=== PATIENT | male | born 1950 | race Caucasian/White ===

== ENCOUNTER 2016-08-07 13:50 | Inpatient (IN) | payer MEDICARE ==
[~2016-08-07] VITALS: Ht 182.9 cm; Wt 78.0 kg
[2016-08-07 13:53] VITALS: BP 136/78; PULSE 78; RESP 20; TEMP 97.7; O2SAT 91
[2016-08-07] MEDS ORDERED: SODIUM CHLORIDE 0.9% FLUSH 5 ML FLUSH IVF PRN (14:15)
[2016-08-07] MEDS ORDERED: ASPIRIN 81 MG CHEW TAB PO ONE (14:15)
[2016-08-07] MEDS ORDERED: INSULIN HUMAN REGULAR 1,000 UNITS/10 ML VIAL IVP ONE (14:15)
[2016-08-07] MEDS ORDERED: SODIUM CHLOR 0.9% 1000 ML INJ 1,000 ML IV ONE (14:15)
--- NOTE | 2016-08-07 14:15 | PD ---
HPI Chief Complaint: General Weakness Time Seen by Provider: 14:14 Travel History International Travel<30 days: No Contact w/Intl Traveler<30days: No Traveled to known affect area: No History of Present Illness HPI 66-year-old female who normally lives in [place] down here for about a month, presents to the emergency Department with a history of type 2 diabetes treated with insulin, long-term smoking history with untreated COPD, and complaints of generalized weakness and malaise and decreased appetite over the past 2 weeks. Patient was recently started on azithromycin yesterday by his primary care physician Alphonso Salmeron for presumed bronchitis/sinusitis. Patient denies fever, chills, chest pain but complains of chest congestion. Patient states he feels short of breath with exertion. Patient states he normally walks 2 miles a day but hasn't done that in some time. Patient denies nausea, vomiting, and abdominal pain. Patient has a history of pancreatitis in the past from alcohol use but has not had that many years. Patient only has an occasional beer at this time. Patient smokes at least a pack a day typically but hasn't been smoking as much as normal in the past 2 weeks. Patient's blood sugars have been running in the high 200s over the past week. Patient is allergic to penicillin. [facility] Social History Alcohol Use: Yes (occasional beer.) Tobacco Use: Yes Substance Use: No Allergies-Medications (Allergen,Severity, Reaction): Coded Allergies: Penicillin (Verified Allergy, Severe, 08/07/16) Reported Meds & Prescriptions Reported Meds & Active Scripts Active Reported Azithromycin 250 Mg Tab 250 Mg PO DIRECTED Take 2 tabs (500 mg) on day 1 then 1 tab daily x 4 days. Lantus Inj (Insulin Glargine) 1,000 Unit/10 Ml Vial 20 Units SQ HS Tamsulosin (Tamsulosin HCl) 0.4 Mg Cap 0.4 Mg PO HS Baclofen 10 Mg Tab 10 Mg PO BID PRN Celecoxib 200 Mg Cap 200 Mg PO BID Enalapril (Enalapril Maleate) 10 Mg Tab 10 Mg PO DAILY Metoprolol Tartrate 50 Mg Tab 50 Mg PO DAILY Pantoprazole (Pantoprazole Sodium) 40 Mg Tab 40 Mg PO DAILY Zolpidem (Zolpidem Tartrate) 5 Mg Tab 5 Mg PO HS PRN Xarelto (Rivaroxaban) 20 Mg Tab 20 Mg PO DAILY Metformin (Metformin HCl) 1,000 Mg Tab 1,000 Mg PO BIDPC With meals Hydrocodone-Acetaminophen 10-325 mg Tab 1 Tab PO Q6H PRN Review of Systems General / Constitutional: No: Fever, Chills Eyes: No: Visual changes HENT: Positive: Congestion, No: Headaches, Vertigo, Lightheadedness, Sore Throat, Rhinitis, Rhinorrhea, Neck Stiffness, Neck Pain, Ear Discharge, Earache Cardiovascular: No: Chest Pain or Discomfort Respiratory: Positive: Cough, Shortness of Breath, Wheezing, No: Sneezing, Orthopnea, Hemoptysis, Pleuritic Pain Gastrointestinal: Positive: Loss of Appetite, No: Nausea, Vomiting, Diarrhea, Abdominal Pain, Changes in Bowel Habits Genitourinary: No: Dysuria Musculoskeletal: No: Pain Skin: No Rash Neurologic: Positive: Weakness (generalized) Psychiatric: No: Depression Endocrine: No: Polydipsia Hematologic/Lymphatic: No: Easy Bruising Physical Exam Narrative GENERAL: Patient appears ill but not septic. SKIN: Warm and dry. Poor collar. Somewhat diminished turgor. HEAD: Atraumatic. Normocephalic. EYES: Pupils equal and round. No scleral icterus. No injection or drainage. ENT: No nasal bleeding or discharge. Mucous membranes pink and moderately dry. Pharynx is normal. No sinus tenderness to palpation. No significant lymphadenopathy. NECK: Trachea midline. No JVD. Supple nontender. CARDIOVASCULAR: Regular rate and rhythm. No murmurs appreciated RESPIRATORY: No accessory muscle use. Moderate diffuse wheezes throughout to auscultation. Breath sounds equal bilaterally. GASTROINTESTINAL: Abdomen soft, non-tender, nondistended. Hepatic and splenic margins not palpable. MUSCULOSKELETAL: Extremities without clubbing, cyanosis, or edema. No obvious deformities. NEUROLOGICAL: Awake and alert. No obvious cranial nerve deficits. Motor grossly within normal limits. Five out of 5 muscle strength in the arms and legs. Normal speech. PSYCHIATRIC: Appropriate mood and affect; insight and judgment normal. Data Data Last Documented VS Vital Signs Date Time Temp Pulse Resp B/P Pulse Ox O2 Delivery O2 Flow Rate FiO2 08/07/16 14:26 89 Room Air 08/07/16 14:26 2 08/07/16 13:53 97.7 78 20 136/78 Orders Electrocardiogram (08/07/16 14:15) Complete Blood Count With Diff (08/07/16 14:15) Comprehensive Metabolic Panel (08/07/16 14:15) Magnesium (Mg) (08/07/16 14:15) Beta Hydroxybutyrate (Acetone) (08/07/16 14:15) Urinalysis - C+S If Indicated (08/07/16 14:15) Chest, Single Ap (08/07/16 14:15) Ecg Monitoring (08/07/16 14:15) Iv Access Insert/Monitor (08/07/16 14:15) Oximetry (08/07/16 14:15) NPO (08/07/16 14:15) Sodium Chloride 0.9% Flush (Ns Flush) (08/07/16 14:15) Sodium Chlor 0.9% 1000 Ml Inj (Ns 1000 M (08/07/16 14:15) Troponin I (08/07/16 14:15) Lipase (08/07/16 14:15) B-Type Natriuretic Peptide (08/07/16 14:15) Prothrombin Time / Inr (Pt) (08/07/16 14:15) Act Partial Throm Time (Ptt) (08/07/16 14:15) Oxygen Administration (08/07/16 14:15) Aspirin Chew (Aspirin Chew) (08/07/16 14:15) Insulin Human Regular Inj (Novolin R Inj (08/07/16 14:15) Blood Glucose (08/07/16 14:15) Methylprednisolone So Succ Inj (Solumedr (08/07/16 15:45) Albuterol-Ipratropium Neb (Duoneb Neb) (08/07/16 15:45) Nicotine 21 Mg Patch.24 Hr (Habitrol 21 (08/07/16 16:00) Labs Laboratory Tests Test 08/07/16 08/07/16 12:34 14:52 White Blood Count 9.1 TH/MM3 Red Blood Count 4.91 MIL/MM3 Hemoglobin 15.8 GM/DL Hematocrit 44.9 % Mean Corpuscular Volume 91.3 FL Mean Corpuscular Hemoglobin 32.1 PG Mean Corpuscular Hemoglobin 35.2 % Concent Red Cell Distribution Width 13.0 % Platelet Count 275 TH/MM3 Mean Platelet Volume 7.8 FL Neutrophils (%) (Auto) 76.5 % Lymphocytes (%) (Auto) 15.8 % Monocytes (%) (Auto) 7.3 % Eosinophils (%) (Auto) 0.1 % Basophils (%) (Auto) 0.3 % Neutrophils # (Auto) 6.9 TH/MM3 Lymphocytes # (Auto) 1.4 TH/MM3 Monocytes # (Auto) 0.7 TH/MM3 Eosinophils # (Auto) 0.0 TH/MM3 Basophils # (Auto) 0.0 TH/MM3 CBC Comment DIFF FINAL Differential Comment Prothrombin Time 11.6 SEC Prothromb Time International 1.0 RATIO Ratio Activated Partial 33.4 SEC Thromboplast Time Sodium Level 123 MEQ/L Potassium Level 4.8 MEQ/L Chloride Level 89 MEQ/L Carbon Dioxide Level 25.7 MEQ/L Anion Gap 8 MEQ/L Blood Urea Nitrogen 11 MG/DL Creatinine 1.04 MG/DL Estimat Glomerular Filtration 72 ML/MIN Rate Random Glucose 378 MG/DL Calcium Level 8.6 MG/DL Magnesium Level 0.8 MG/DL Total Bilirubin 1.0 MG/DL Aspartate Amino Transf 11 U/L (AST/SGOT) Alanine Aminotransferase 15 U/L (ALT/SGPT) Alkaline Phosphatase 86 U/L Troponin I LESS THAN 0.02 NG/ML B-Type Natriuretic Peptide 66 PG/ML Total Protein 7.1 GM/DL Albumin 3.2 GM/DL Lipase 148 U/L B-Hydroxybutyrate 0.98 MMOL/L Urine Color YELLOW Urine Turbidity CLEAR Urine pH 6.5 Urine Specific [place] 1.029 Urine Protein NEG mg/dL Urine Glucose (UA) 1000 mg/dL Urine Ketones 40 mg/dL Urine Occult Blood NEG Urine Nitrite NEG Urine Bilirubin NEG Urine Urobilinogen 2.0 MG/DL Urine Leukocyte Esterase NEG Urine RBC 2 /hpf Urine WBC LESS THAN 1 /hpf Urine Squamous Epithelial 1 /hpf Cells Microscopic Urinalysis Comment CULT NOT INDICATED MDM Medical Decision Making Medical Screen Exam Complete: Yes Emergency Medical Condition: Yes Differential Diagnosis Hyperglycemia. Electrolyte imbalance. Weakness. COPD. Bronchitis. Pneumonia. Cardiac syndrome. CHF. Narrative Course Patient is felt to be medically stable at time of exam. Labs ordered including cardiac panel, CBC, CMP, proBNP, lipase and urinalysis. Chest x-ray is ordered as well as EKG. CBC is unremarkable except for right shift without leukocytosis. PT PTT and INR are unremarkable. CMP shows a sodium of 123, potassium 4.8, chloride 89. Troponin is less than 0.02. ProBNP is 66. Lipase is normal 148. Patient continues to be hypoxic. Patient discussed with Dr. Lopez who recommends Solu-Medrol 125 mg IV. Also duo nebs 3. Patient is given 1000 mL normal saline IV as well as 10 units IV insulin. Patient is started on a nicotine patch. Call was placed to the hospitalist for admission. Diagnosis Primary Impression: Hyperglycemia due to type 2 diabetes mellitus Qualified Code: E11.65 - Type 2 diabetes mellitus with hyperglycemia, with long-term current use of insulin Additional Impressions: Hypoxia COPD exacerbation Hyponatremia Admitting Information Admitting Physician Requests: Admit Condition: Stable Kranthi Cox Aug 07, 2016 14:14
[2016-08-07] MEDS ORDERED: ZOLP5TAB3 PO (14:25)
[2016-08-07] MEDS ORDERED: LANTUS2P SQ (14:25)
[2016-08-07] MEDS ORDERED: XARE20TA PO (14:25)
[2016-08-07] MEDS ORDERED: HYDR-3583 PO (14:25)
[2016-08-07] MEDS ORDERED: CELE1CAP8 PO (14:25)
[2016-08-07] MEDS ORDERED: METO50TA PO (14:25)
[2016-08-07] MEDS ORDERED: AZIT250T3 PO (14:25)
[2016-08-07] MEDS ORDERED: BACL10TA PO (14:25)
[2016-08-07] MEDS ORDERED: TAMS0.4C4 PO (14:25)
[2016-08-07] MEDS ORDERED: ENAL10TA PO (14:25)
[2016-08-07] MEDS ORDERED: METF1000 PO (14:25)
[2016-08-07] MEDS ORDERED: PANT40TA3 PO (14:25)
[2016-08-07 14:26] VITALS: O2SAT 89
[2016-08-07 15:04] LABS: AUTOMATED NEUTROPHIL # 6.9 TH/MM3 (1.8-7.7); BASOPHIL % 0.3 % (0.0-2.0); EOSINOPHIL % 0.1 % (0.0-4.0); HEMATOCRIT 44.9 % (39.0-51.0); HEMO FLAGS DIFF FINAL; LYMPH % 15.8 % (9.0-44.0); LYMPHOCYTE # 1.4 TH/MM3 (1.0-4.8); MEAN CELL VOLUME 91.3 FL (80.0-100.0); MEAN CORPUSCULAR HEMOGLOBIN 32.1 PG (27.0-34.0); MEAN CORPUSCULAR HGB CONC 35.2 % (32.0-36.0); MONO % 7.3 % (0.0-8.0); NEUT % 76.5 % (16.0-70.0); PLATELET COUNT 275 TH/MM3 (150-450); RED BLOOD COUNT 4.91 MIL/MM3 (4.50-5.90); WHITE BLOOD COUNT 9.1 TH/MM3 (4.0-11.0)
[2016-08-07 15:06] LABS: BLOOD, URINE NEG (NEG); GLUCOSE,URINE 1000 mg/dL (NEG); KETONE, URINE 40 mg/dL (NEG); NITRITE,URINE NEG (NEG); PH, URINE 6.5 (5.0-8.5); SQUAMOUS EPITHELIAL CELL URINE 1 /hpf (0-5); URINE COLOR YELLOW (YELLW/STRAW)
[2016-08-07 15:07] LABS: COMMENT (UR) CULT NOT INDICATED; CULTURE IF INDICATED CULT NOT INDICATED
--- NOTE | 2016-08-07 15:09 | RADRPT ---
EXAM DATE/TIME: 08/07/2016 14:32 [facility] COMPARISON: No previous studies available for comparison. INDICATIONS : Short of breath. MEDICAL HISTORY : Diabetes mellitus type II. SURGICAL HISTORY : None. ENCOUNTER: Initial ACUITY: 1 week PAIN SCORE: 4/10 LOCATION: Left chest FINDINGS: A single view of the chest demonstrates the lungs to be symmetrically aerated without evidence of mas s, infiltrate or effusion. The cardiomediastinal contours are unremarkable. Osseous structures are intact. CONCLUSION: No acute disease. Marissa Mathur MD on August 07, 2016 at 15:07 Board Certified Radiologist. This report was verified electronically.
[2016-08-07 15:27] LABS: ALKALINE PHOSPHATASE 86 U/L (45-117); ALT (GPT) 15 U/L (12-78); ANION GAP 8 MEQ/L (5-15); AST (GOT) 11 U/L (15-37); BETA-HYDROXYBUTYRATE 0.98 MMOL/L (0.00-0.39); BICARBONATE 25.7 MEQ/L (21.0-32.0); BLOOD UREA NITROGEN 11 MG/DL (7-18); CHLORIDE 89 MEQ/L (98-107); GLOMERULAR FILTRATION RATE 72 ML/MIN (>89); MAGNESIUM 0.8 MG/DL (1.5-2.5); POTASSIUM 4.8 MEQ/L (3.5-5.1)
[2016-08-07 15:38] LABS: SODIUM (NA) 123 MEQ/L (136-145)
[2016-08-07 15:39] LABS: APTT (PATIENT) 33.4 SEC (24.3-30.1); PROTHROMBIN TIME - PATIENT 11.6 SEC (9.8-11.6)
[2016-08-07 15:45] VITALS: O2SAT 94
[2016-08-07] MEDS ORDERED: methylPREDNISolone SOD SUCC 125 MG/2 ML VIAL IVP ONE (15:45)
[2016-08-07] MEDS ORDERED: NICOTINE 21 MG/24 HR PATCH TD ONE (16:00)
[2016-08-07 16:06] VITALS: BP 128/76; PULSE 68; RESP 14; O2SAT 95
[2016-08-07] MEDS: RESP: ALBUTEROL 2.5 MG/IPRATROPIUM 0.5 MG NEB (SCH) INH (16:16)
--- NOTE | 2016-08-07 16:58 | HHI.HP ---
HPI Service Family Medicine Primary Care Physician Unknown Admission Diagnosis Hyperglycemia/Hypoxia/Hyponatremia/COPD Diagnoses: Chief Complaint: Malaise International Travel<30 Days: No Contact w/Intl Traveler<30days: No Known Affected Area: No History of Present Illness 66 year old male with PMH of T2DM diagnosed 2 years ago has been on insulin since diagnosis presents to ED with his fisherlyn with complaints of generalized weakness and malaise over the past [address] Thompson in [place]. Patient states he was in [place] until the end of June. PCP started a medication for cholesterol in mid june, however took this for only 7 days as his blood glucoses started to elevate and was advised to discontinue per PCP. Patient does check his blood sugars every morning and night. Blood glucoses over the past two weeks have mostly been in the range of 200 - 300s. Prior to starting his cholesterol medication his sugars were better controlled in the 120s-130s. His fiance recently called his PCP and was prescribed azithromycin which was started yesterday. Fisherlyn bought an OTC urine test strip which was remarkable for elevated ketones and was advised by PCP to go to the ED. States he possibly had a fever sometime during the previous week however he denies no other fevers since then. Denies vomiting. Denies chest pain. Patient states he used to walk 2 miles per day. States he has been feeling short of breath for the past 2 weeks. Can only walk to the mailbox and back before feeling SOB. Reports a dry cough also over the past 2 weeks. Decreased PO and fluid intake due to decreased appetite x 2 weeks. (Zhen Brown MD R1) Review of Systems Constitutional: COMPLAINS OF: Fatigue, Fever, Change in appetite, DENIES: Diaphoretic episodes, Chills, Dizziness Eyes: DENIES: Blurred vision Respiratory: COMPLAINS OF: Cough, Shortness of breath, DENIES: Sputum production Cardiovascular: DENIES: Chest pain, Palpitations, Lower Extremity Edema Gastrointestinal: DENIES: Abdominal pain, Black stools, Bloody stools, Constipation, Diarrhea, Nausea, Vomiting Genitourinary: DENIES: Hematuria, Dysuria Neurologic: DENIES: Tremor (Zhen Brown MD R1) Past Family Social History Past Medical History T2DM HTN Arthritis Blood clot in portal vein, now on Xarelto BPH Past Surgical History Cholecystectomy L hip replacement Reported Medications Reported Meds & Active Scripts Active Reported Azithromycin 250 Mg Tab 250 Mg PO DIRECTED Take 2 tabs (500 mg) on day 1 then 1 tab daily x 4 days. Lantus Inj (Insulin Glargine) 1,000 Unit/10 Ml Vial 20 Units SQ HS Tamsulosin (Tamsulosin HCl) 0.4 Mg Cap 0.4 Mg PO HS Baclofen 10 Mg Tab 10 Mg PO BID PRN Celecoxib 200 Mg Cap 200 Mg PO BID Enalapril (Enalapril Maleate) 10 Mg Tab 10 Mg PO DAILY Metoprolol Tartrate 50 Mg Tab 50 Mg PO DAILY Pantoprazole (Pantoprazole Sodium) 40 Mg Tab 40 Mg PO DAILY Zolpidem (Zolpidem Tartrate) 5 Mg Tab 5 Mg PO HS PRN Xarelto (Rivaroxaban) 20 Mg Tab 20 Mg PO DAILY Metformin (Metformin HCl) 1,000 Mg Tab 1,000 Mg PO BIDPC With meals Hydrocodone-Acetaminophen 10-325 mg Tab 1 Tab PO Q6H PRN (Zhen Brown MD R1) Allergies: Coded Allergies: Penicillin (Verified Allergy, Mild, 08/07/16) Skin peeling Family History Mother: needed an AICD, unclear history, liver cancer Father: COPD requiring oxygen, [place] at age 60 Social History Tobacco: 1 PPD x 50 plus years Etoh: consumes a beer occasionally, 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; two years ago he started decreasing etoh intake, last drink was about 2 weeks ago Illicit drug use: nothing in the last 5 years Visiting from [place] and now staying in [place] [facility] in [place] ( Zhen Brown MD R1) Physical Exam Vital Signs Vital Signs Date Time Temp Pulse Resp B/P Pulse Ox O2 Delivery O2 Flow Rate FiO2 08/07/16 16:06 68 14 128/76 95 Nasal Cannula 2 08/07/16 15:45 94 Nasal Cannula 2.00 08/07/16 14:26 89 Room Air 08/07/16 14:26 92 Nasal Cannula 2 08/07/16 13:53 97.7 78 20 136/78 91 Room Air Physical Exam GENERAL: Lying in bed, appears relatively comfortable, breathing nonlabored, NAD SKIN: No rashes, ecchymoses or lesions. Cool and dry. HEAD: Atraumatic. Normocephalic. EYES: PERRL. EOMI. No scleral icterus. No injection or drainage. ENT: No nasal drainage. MMM. Uvula midline. Airway patent. NECK: Supple. No JVD or lymphadenopathy. CARDIOVASCULAR: Regular rate and rhythm without murmurs, gallops, or rubs. Peripheral pulses 2+. Cap refill about 2 seconds. RESPIRATORY: Coarse breath sounds moreso bibasilar. Faint expiratory wheezing. No rhonchi. Breathing at comfortable rate. GASTROINTESTINAL: Abdomen soft, non-tender, nondistended. No hepato-splenomegaly , or palpable masses. No guarding. MUSCULOSKELETAL: Extremities without clubbing, cyanosis, or edema. No joint tenderness, effusion, or edema noted. No calf tenderness. NEUROLOGICAL: Awake and alert. Normal speech. Cranial nerves II through XII intact. Motor and sensory grossly within normal limits. Laboratory Laboratory Tests Test 08/07/16 08/07/16 12:34 14:52 White Blood Count 9.1 Red Blood Count 4.91 Hemoglobin 15.8 Hematocrit 44.9 Mean Corpuscular Volume 91.3 Mean Corpuscular Hemoglobin 32.1 Mean Corpuscular Hemoglobin 35.2 Concent Red Cell Distribution Width 13.0 Platelet Count 275 Mean Platelet Volume 7.8 Neutrophils (%) (Auto) 76.5 Lymphocytes (%) (Auto) 15.8 Monocytes (%) (Auto) 7.3 Eosinophils (%) (Auto) 0.1 Basophils (%) (Auto) 0.3 Neutrophils # (Auto) 6.9 Lymphocytes # (Auto) 1.4 Monocytes # (Auto) 0.7 Eosinophils # (Auto) 0.0 Basophils # (Auto) 0.0 CBC Comment DIFF FINAL Differential Comment Prothrombin Time 11.6 Prothromb Time International 1.0 Ratio Activated Partial 33.4 Thromboplast Time Sodium Level 123 Potassium Level 4.8 Chloride Level 89 Carbon Dioxide Level 25.7 Anion Gap 8 Blood Urea Nitrogen 11 Creatinine 1.04 Estimat Glomerular Filtration 72 Rate Random Glucose 378 Calcium Level 8.6 Magnesium Level 0.8 Total Bilirubin 1.0 Aspartate Amino Transf 11 (AST/SGOT) Alanine Aminotransferase 15 (ALT/SGPT) Alkaline Phosphatase 86 Troponin I LESS THAN 0.02 B-Type Natriuretic Peptide 66 Total Protein 7.1 Albumin 3.2 Lipase 148 B-Hydroxybutyrate 0.98 Urine Color YELLOW Urine Turbidity CLEAR Urine pH 6.5 Urine Specific [place] 1.029 Urine Protein NEG Urine Glucose (UA) 1000 Urine Ketones 40 Urine Occult Blood NEG Urine Nitrite NEG Urine Bilirubin NEG Urine Urobilinogen 2.0 Urine Leukocyte Esterase NEG Urine RBC 2 Urine WBC LESS THAN 1 Urine Squamous Epithelial 1 Cells Microscopic Urinalysis Comment CULT NOT INDICATED (Zhen Brown MD R1) Result Diagram: 08/07/16 1234 08/07/16 1234 Imaging Last 48 hours Impressions Chest X-Ray 08/07/16 1415 Signed Impressions: Service Date/Time: , August 07, 2016 14:32 - CONCLUSION: No acute disease. Marissa Mathur MD (Zhen Brown MD R1) Assessment and Plan Assessment and Plan 66 year old male with PMH of T2DM insulin dependent presents with: Code Status Full code Discussed Condition With sdw Dr. Quinn wdw Dr. Waldron (Zhen Brown MD R1) Problem List: (1) COPD (chronic obstructive pulmonary disease) Status: Acute Plan: No prior diagnosis of COPD per patient and his fiance. Patient does have a significant cigarette smoking history. Will obtain PFTs in the morning Lungs may be mildly hyperinflated on CXR - Received Solumedrol 125 mg IV in ED - Will continue with Solumedrol 40 mg IV for the AM - Continue azithromycin as patient had completed 2 days prior to admission - Added Rocephin - O2 via NC, wean as tolerated, goal O2 sats 88-92% - Duonebs and albuterol prn for now - PT (2) T2DM (type 2 diabetes mellitus) Status: Chronic Plan: Patient is compliant with medications but DM seems to be inadequately controlled Glucose 378 on CMP, 1000 glucose in UA, acetone elevated Obtain HbA1c Levemir 10 units qhs Low-dose ISS Continue home metformin Accuchecks ACHS (3) Hyponatremia Status: Acute Plan: Na 123 on admission Pseudohyponatremia may be contributing 1.5 L fluid restriction Repeat BMP now and for the AM (4) Hypertension Status: Chronic Plan: BPs within normal limits Continue home medications (5) Portal vein thrombosis Status: Chronic Plan: Continue home Xarelto (6) Nutrition, metabolism, and development symptoms Status: Acute Plan: Diabetic diet DVT PPX: Home Xarelto dose, SCDs GI PPX: Protonix 40 mg po daily (Zhen Brown MD R1) Physician Certification 2 Midnight Certification Type: Admission for Inpatient Services Order for Inpatient Services The services are ordered in accordance with Medicare regulations or non- Medicare payer requirements, as applicable. In the case of services not specified as inpatient-only, they are appropriately provided as inpatient services in accordance with the 2-midnight benchmark. Estimated LOS (days): 2 days is the estimated time the patient will need to remain in the hospital, assuming treatment plan goals are met and no additional complications. Post-Hospital Plan: Home (Zhen Brown MD R1) 2 Midnight Certification Type: Admission for Inpatient Services Post-Hospital Plan: Home (Gregory Waldron MD) Zhen Brown MD R1 Aug 07, 2016 16:58 Gregory Waldron MD Aug 07, 2016 21:19
[2016-08-07] MEDS ORDERED: BACLOFEN 10 MG TAB PO PRN (17:30)
[2016-08-07] MEDS ORDERED: GLUCAGON 1 MG/ML VIAL OTHER PRN (17:30)
[2016-08-07] MEDS ORDERED: DEXTROSE 50% IN WATER 50 ML VIAL(D50) IV PUSH PRN (17:30)
--- NOTE | 2016-08-07 17:42 | PD ---
Data Data Last Documented VS Vital Signs Date Time Temp Pulse Resp B/P Pulse Ox O2 Delivery O2 Flow Rate FiO2 08/07/16 16:06 68 14 128/76 95 Nasal Cannula 2 08/07/16 13:53 97.7 Orders Electrocardiogram (08/07/16 14:15) Complete Blood Count With Diff (08/07/16 14:15) Comprehensive Metabolic Panel (08/07/16 14:15) Magnesium (Mg) (08/07/16 14:15) Beta Hydroxybutyrate (Acetone) (08/07/16 14:15) Urinalysis - C+S If Indicated (08/07/16 14:15) Chest, Single Ap (08/07/16 14:15) Ecg Monitoring (08/07/16 14:15) Iv Access Insert/Monitor (08/07/16 14:15) Oximetry (08/07/16 14:15) NPO (08/07/16 14:15) Sodium Chloride 0.9% Flush (Ns Flush) (08/07/16 14:15) Sodium Chlor 0.9% 1000 Ml Inj (Ns 1000 M (08/07/16 14:15) Troponin I (08/07/16 14:15) Lipase (08/07/16 14:15) B-Type Natriuretic Peptide (08/07/16 14:15) Prothrombin Time / Inr (Pt) (08/07/16 14:15) Act Partial Throm Time (Ptt) (08/07/16 14:15) Oxygen Administration (08/07/16 14:15) Aspirin Chew (Aspirin Chew) (08/07/16 14:15) Insulin Human Regular Inj (Novolin R Inj (08/07/16 14:15) Blood Glucose (08/07/16 14:15) Methylprednisolone So Succ Inj (Solumedr (08/07/16 15:45) Albuterol-Ipratropium Neb (Duoneb Neb) (08/07/16 15:45) Nicotine 21 Mg Patch.24 Hr (Habitrol 21 (08/07/16 16:00) Admit Order (Ed Use Only) (08/07/16 16:41) Labs Laboratory Tests Test 08/07/16 08/07/16 12:34 14:52 White Blood Count 9.1 TH/MM3 Red Blood Count 4.91 MIL/MM3 Hemoglobin 15.8 GM/DL Hematocrit 44.9 % Mean Corpuscular Volume 91.3 FL Mean Corpuscular Hemoglobin 32.1 PG Mean Corpuscular Hemoglobin 35.2 % Concent Red Cell Distribution Width 13.0 % Platelet Count 275 TH/MM3 Mean Platelet Volume 7.8 FL Neutrophils (%) (Auto) 76.5 % Lymphocytes (%) (Auto) 15.8 % Monocytes (%) (Auto) 7.3 % Eosinophils (%) (Auto) 0.1 % Basophils (%) (Auto) 0.3 % Neutrophils # (Auto) 6.9 TH/MM3 Lymphocytes # (Auto) 1.4 TH/MM3 Monocytes # (Auto) 0.7 TH/MM3 Eosinophils # (Auto) 0.0 TH/MM3 Basophils # (Auto) 0.0 TH/MM3 CBC Comment DIFF FINAL Differential Comment Prothrombin Time 11.6 SEC Prothromb Time International 1.0 RATIO Ratio Activated Partial 33.4 SEC Thromboplast Time Sodium Level 123 MEQ/L Potassium Level 4.8 MEQ/L Chloride Level 89 MEQ/L Carbon Dioxide Level 25.7 MEQ/L Anion Gap 8 MEQ/L Blood Urea Nitrogen 11 MG/DL Creatinine 1.04 MG/DL Estimat Glomerular Filtration 72 ML/MIN Rate Random Glucose 378 MG/DL Calcium Level 8.6 MG/DL Magnesium Level 0.8 MG/DL Total Bilirubin 1.0 MG/DL Aspartate Amino Transf 11 U/L (AST/SGOT) Alanine Aminotransferase 15 U/L (ALT/SGPT) Alkaline Phosphatase 86 U/L Troponin I LESS THAN 0.02 NG/ML B-Type Natriuretic Peptide 66 PG/ML Total Protein 7.1 GM/DL Albumin 3.2 GM/DL Lipase 148 U/L B-Hydroxybutyrate 0.98 MMOL/L Urine Color YELLOW Urine Turbidity CLEAR Urine pH 6.5 Urine Specific [place] 1.029 Urine Protein NEG mg/dL Urine Glucose (UA) 1000 mg/dL Urine Ketones 40 mg/dL Urine Occult Blood NEG Urine Nitrite NEG Urine Bilirubin NEG Urine Urobilinogen 2.0 MG/DL Urine Leukocyte Esterase NEG Urine RBC 2 /hpf Urine WBC LESS THAN 1 /hpf Urine Squamous Epithelial 1 /hpf Cells Microscopic Urinalysis Comment CULT NOT INDICATED MDM Supervised Visit with TERESA: Yes Narrative Course The history, exam, and medical decision-making in the associated midlevel provider note were completed with my assistance. I reviewed and agree with the findings presented. I attest that I had a [id number] encounter with the patient on the same day, and personally performed and documented my assessment and findings in the medical record. *My assessment and Findings: This is a 66-year-old male was long history of smoking and diabetes who presents to the emergency department with increasing shortness of breath it's been progressive over the past several weeks. On exam he has diffuse wheezing, and his oxygen saturation on room air is 88%. He was placed on a monitor and an IV was established. Labs demonstrate a hyperglycemia with a corrected sodium of 127. Patient's presentation is consistent with a COPD exacerbation. He was given serial Brocco dilator treatments and steroids. I think he requires admission both for a low oxygen saturation as well as glucose management as he is going to require steroids. Diagnosis Primary Impression: Hyperglycemia due to type 2 diabetes mellitus Qualified Code: E11.65 - Type 2 diabetes mellitus with hyperglycemia, with long-term current use of insulin Additional Impressions: Hyponatremia COPD exacerbation Hypoxia Condition: Stable Carolina Lopez MD Aug 07, 2016 17:42
[2016-08-07] MEDS: metFORMIN HCL 500 MG TAB PO SCH (18:00)
[2016-08-07] MEDS ORDERED: SODIUM CHLOR 0.9% 1000 ML INJ 1,000 ML IV SCH (18:00)
[2016-08-07] MEDS ORDERED: RESP: ALBUTEROL 2.5 MG/3 ML NEB (PRN) INH (18:15)
[2016-08-07] MEDS: ACETAMINOPHEN/HYDROcodone 325 MG/10 MG TAB PO PRN (19:00)
[2016-08-07 20:00] VITALS: BP 126/84; PULSE 115; RESP 18; TEMP 98.1; O2SAT 94
[2016-08-07] MEDS ORDERED: RESP: ALBUTEROL 2.5 MG/IPRATROPIUM 0.5 MG NEB (PRN) NEB (20:00)
[2016-08-07] MEDS: cefTRIAXone INJ 1,000 MG in SODIUM CHLORIDE 0.9% INJ 100 ML IV SCH (20:17)
[2016-08-07] MEDS: TAMSULOSIN HCL 0.4 MG CAP PO SCH (20:18)
[2016-08-07] MEDS: CELECOXIB 200 MG CAP PO SCH (20:18)
[2016-08-07] MEDS ORDERED: INSULIN ASPART SUPPLEMENTAL SCALE SQ SCH (21:00)
--- NOTE | 2016-08-07 21:31 | HHI.FPPN ---
Subjective Remarks Attending note: 66-year-old gentleman from [place] admitted with a one to two-week history of increasing generalized weakness, shortness of breath, coughing. Patient has a significant tobacco history in the past, states his baseline health is that he walks 2 miles a day and really feels very well although it is been 2 weeks since he was able to walk 2 miles. Has had a cough, not necessarily productive, does not recall any fever or chills. Denies any nausea vomiting or diarrhea. Has a fair history of a portal vein thrombosis in his arms or relative, is aware that his blood sugars have been going up to the 3 to 400s which is unusual for him, has had some polyuria and polydipsia. Refer to resident's history and physical for complete discussion of the past medical history, family history, social history and review of systems. Objective Vitals Vital Signs Date Time Temp Pulse Resp B/P Pulse Ox O2 Delivery O2 Flow Rate FiO2 08/07/16 16:06 68 14 128/76 95 Nasal Cannula 2 08/07/16 15:45 94 Nasal Cannula 2.00 08/07/16 14:26 89 Room Air 08/07/16 14:26 92 Nasal Cannula 2 08/07/16 13:53 97.7 78 20 136/78 91 Room Air Result Diagram: 08/07/16 1234 08/07/16 1234 Objective Remarks Vital signs noted. O2 saturation 95 on 2 L of nasal cannula patient resting relatively comfortably, coughing intermittently. HEENT: Grossly nonlocalizing. Lungs: Distant breath sounds with left and right upper and lower wheezing moderate Cardiac: S1-S2, no S3 or murmurs. Abdomen: Slightly protuberant, no tenderness, numbness or organomegaly evident. Extremities: Feet are warm and dry, calves are supple. Refer to resident's physical exam. We discussed in details. A/P Assessment and Plan Clinical assessment 66-year-old gentleman admitted with increasing malaise, weakness, cough and "just not feeling well ". Evidently patient has COPD, is being treated for an exacerbation. Has uncontrolled diabetes at the current time, this is being addressed with insulin, chronic anticoagulation on hyponatremia as result of hyperglycemia . Patient seen and examined. Case to be reviewed and discussed with resident team. Agree with plan of care as to be discussed with resident team and to be documented in the resident note. Gregory Waldron MD Aug 07, 2016 21:31
[2016-08-07 22:38] LABS: POTASSIUM 4.3 MEQ/L (3.5-5.1)
[2016-08-07] MEDS: INSULIN DETEMIR 100 UNITS/ML VIAL SQ SCH (23:00)
[2016-08-08] VITALS (10 sets, daily range): BP systolic 130–166; BP diastolic 70–89; PULSE 49–82; RESP 18–20; TEMP 97.5–98.3; O2SAT 91–96
[2016-08-08] MEDS ORDERED: SODIUM CHLORID 0.9% 500 ML INJ 500 ML IV ONE
[2016-08-08] MEDS: NS + KCL 20 MEQ INJ 1,000 ML IV SCH ×3 (00:29→15:34)
[2016-08-08 01:39] LABS: BLOOD GAS BASE EXCESS -0.7 mmol/L (-2-2); BLOOD GAS CARBOXYHEMOGLOBIN 2.1 % (0-4); BLOOD GAS HCO3 23 mmol/L (22-26); BLOOD GAS METHEMOGLOBIN 0.7 % (0-2); BLOOD GAS O2 HGB SATURATION 90 % (90-100); BLOOD GAS OXYGEN CONTENT 17.8 Vol % (12.0-20.0); BLOOD GAS PCO2 35 mmHg (38-42); BLOOD GAS PO2 68 mmHg (61-120); CRITICAL VALUE NO; DRAW SITE RT RADIAL; OXYGEN DEVICE RA; TEMP CORR TO 98.6
[2016-08-08 01:40] LABS: NUMBER OF ARTERIAL PUNCTURES 1; STAT YES; ULNAR PULSE PRESENT
[2016-08-08] MEDS: ACETAMINOPHEN/HYDROcodone 325 MG/10 MG TAB PO PRN ×4 (01:55→21:19)
[2016-08-08 02:20] LABS: POTASSIUM 4.5 MEQ/L (3.5-5.1)
[2016-08-08] MEDS: INSULIN ASPART SUPPLEMENTAL SCALE SQ SCH ×4 (07:00→21:11)
[2016-08-08 07:15] LABS: AUTOMATED NEUTROPHIL # 5.4 TH/MM3 (1.8-7.7); BASOPHIL % 0.2 % (0.0-2.0); HEMATOCRIT 39.5 % (39.0-51.0); HEMO FLAGS DIFF FINAL; LYMPHOCYTE # 0.7 TH/MM3 (1.0-4.8); MEAN CORPUSCULAR HEMOGLOBIN 32.3 PG (27.0-34.0); MEAN CORPUSCULAR HGB CONC 35.5 % (32.0-36.0); MONO % 4.5 % (0.0-8.0); NEUT % 84.3 % (16.0-70.0); PLATELET COUNT 208 TH/MM3 (150-450); RED BLOOD COUNT 4.34 MIL/MM3 (4.50-5.90); RED CELL DISTRIBUTION WIDTH 12.8 % (11.6-17.2); WHITE BLOOD COUNT 6.4 TH/MM3 (4.0-11.0)
[2016-08-08 07:29] LABS: ANION GAP 9 MEQ/L (5-15); BETA-HYDROXYBUTYRATE 1.01 MMOL/L (0.00-0.39); BICARBONATE 23.8 MEQ/L (21.0-32.0); BLOOD UREA NITROGEN 13 MG/DL (7-18); CHLORIDE 96 MEQ/L (98-107); GLOMERULAR FILTRATION RATE 103 ML/MIN (>89); POTASSIUM 4.7 MEQ/L (3.5-5.1); SODIUM (NA) 129 MEQ/L (136-145)
[2016-08-08] MEDS ORDERED: INSULIN DETEMIR 100 UNITS/ML VIAL SQ SCH (08:00)
[2016-08-08] MEDS: AZITHROMYCIN 250 MG TAB PO SCH (08:15)
[2016-08-08] MEDS: PANTOPRAZOLE SOD 40 MG DELAYED RELEASE TAB PO SCH (08:16)
[2016-08-08] MEDS: ENALAPRIL MALEATE 10 MG TAB PO SCH (08:16)
[2016-08-08] MEDS: METOPROLOL TARTRATE 50 MG TAB PO SCH (08:16)
[2016-08-08] MEDS: CELECOXIB 200 MG CAP PO SCH ×2 (08:16→21:09)
[2016-08-08] MEDS: RIVAROXABAN 20 MG TAB PO SCH (08:16)
[2016-08-08] MEDS: metFORMIN HCL 500 MG TAB PO SCH (08:16)
[2016-08-08] MEDS: NICOTINE 21 MG/24 HR PATCH TD SCH (08:19)
[2016-08-08] MEDS: REMOVE OLD NICODERM (NICOTINE) PATCH TD SCH (08:20)
[2016-08-08] MEDS ORDERED: methylPREDNISolone SOD SUCC 40 MG/1 ML VIAL IV SCH (09:00)
[2016-08-08 11:02] LABS: HEMOGLOBIN A1a 1.2 %; HEMOGLOBIN Ao 77.4 %; HEMOGLOBIN F 1.4 %; HEMOGLOBIN LA1C 4.1 %; HEMOGLOBIN P3 5.7 %
--- NOTE | 2016-08-08 15:26 | HHI.FPPN ---
Subjective Remarks Afebrile, blood pressure mildly hypertensive overnight. O2 via NC weaned down to 1L. Patient appears more comfortable this morning compared to admission. States overall he feels about 80% better. Denies any fevers or chills. States his cough has improved. He was working with PT this morning, did require oxygen while walking. Denies chest pain, shortness of breath. No GI complaints. Objective Vitals Vital Signs Date Time Temp Pulse Resp B/P Pulse Ox O2 Delivery O2 Flow Rate FiO2 08/08/16 12:00 98.0 58 18 133/70 91 08/08/16 08:00 97.9 54 18 162/88 95 08/08/16 08:00 64 08/08/16 07:47 94 Nasal Cannula 1.00 08/08/16 07:11 49 08/08/16 04:00 98.3 67 18 166/89 96 08/08/16 00:00 98.3 82 18 145/83 93 08/07/16 20:00 98.1 115 18 126/84 94 08/07/16 16:06 68 14 128/76 95 Nasal Cannula 2 08/07/16 15:45 94 Nasal Cannula 2.00 I/O 08/07/16 08/07/16 08/07/16 08/08/16 08/08/16 08/08/16 07:00 15:00 23:00 07:00 15:00 23:00 Intake Total 240 ml Output Total 350 ml Balance -110 ml Intake Oral 240 ml Output Urine Total 350 ml # Bowel Movements 0 Result Diagram: 08/08/1630 08/08/16 0630 Objective Remarks GENERAL: Lying in bed, appears comfortable, breathing nonlabored, NAD SKIN: No rashes, ecchymoses or lesions. Cool and dry. HEAD: Atraumatic. Normocephalic. EYES: EOMI. No scleral icterus. No injection or drainage. ENT: No nasal drainage. Airway patent. NECK: Supple. No JVD. CARDIOVASCULAR: Regular rate and rhythm without murmurs, gallops, or rubs. Peripheral pulses 2+. RESPIRATORY: Breath sounds more clear than prior examination. Mid-to-late expiratory wheezing. No rales or rhonchi. Breathing at comfortable rate. GASTROINTESTINAL: Abdomen soft, non-tender, nondistended. MUSCULOSKELETAL: Extremities without edema. No calf tenderness. NEUROLOGICAL: Awake and alert. Normal speech. Cranial nerves grossly intact. Motor and sensory grossly within normal limits. A/P Assessment and Plan 66 year old male with PMH of T2DM insulin dependent presents with: Discharge Planning Anticipate discharge home in 1-2 days following stabilization of electrolytes, blood glucose, and respiratory status. Problem List: (1) COPD (chronic obstructive pulmonary disease) Status: Acute Plan: No prior diagnosis of COPD per patient or his fiance. Patient does have a significant cigarette smoking history. Patient will need to obtain PFTs as an outpatient once he returns to his baseline respiratory status prior to admission Lungs may be mildly hyperinflated on CXR - Prednisone 20 mg po BID - Continue Azithromycin and Rocephin (azithromycin started 08/06 prior to admission; Rocephin started 08/07) - O2 via NC, wean as tolerated, goal O2 sats 88-92% - Duonebs and albuterol prn - Continue PT (2) T2DM (type 2 diabetes mellitus) Status: Chronic Plan: Patient is compliant with medications but DM seems to be inadequately controlled HbA1c 8.9 Levemir 10 units qhs, 5 units qAM Medium-dose ISS Continue home metformin Accuchecks ACHS (3) Hyponatremia Status: Acute Plan: Na 123 on admission Pseudohyponatremia may be contributing Could be a component of SIADH Will plan to discontinue fluids soon once patient continues to tolerate diet (4) Hypertension Status: Chronic Plan: Continue to check BPs q4h Continue home medications - Enalapril 10 mg po daily - Metoprolol 50 mg po daily (5) Portal vein thrombosis Status: Chronic Plan: Continue home Xarelto (6) Nutrition, metabolism, and development symptoms Status: Acute Plan: Diabetic diet DVT PPX: Home Xarelto dose, SCDs GI PPX: Protonix 40 mg po daily Zhen Brown MD R1 Aug 08, 2016 15:26
[2016-08-08] MEDS ORDERED: MAGNESIUM SULFATE 1 GM PREMIX 100 ML IV ONE (16:15)
[2016-08-08 17:39] LABS: BICARBONATE 23.7 MEQ/L (21.0-32.0); POTASSIUM 4.4 MEQ/L (3.5-5.1)
--- NOTE | 2016-08-08 17:57 | EKG ---
Date Performed: 08/07/2016 Time Performed: 14:37:27 PTAGE: 66 years EKG: ECTOPIC ATRIAL RHYTHM ABNORMAL RHYTHM ECG NO PREVIOUS TRACING DOCTOR: Romelia Claire Interpretating Date/Time 08/08/2016 17:56:49
[2016-08-08] MEDS: TAMSULOSIN HCL 0.4 MG CAP PO SCH (21:08)
[2016-08-08] MEDS: predniSONE 20 MG TAB PO SCH (21:08)
[2016-08-08] MEDS: INSULIN DETEMIR 100 UNITS/ML VIAL SQ SCH (21:09)
[2016-08-08] MEDS: cefTRIAXone INJ 1,000 MG in SODIUM CHLORIDE 0.9% INJ 100 ML IV SCH (21:09)
[2016-08-08 22:00] LABS: BICARBONATE 24.5 MEQ/L (21.0-32.0); POTASSIUM 5.1 MEQ/L (3.5-5.1)
[2016-08-09 01:12] VITALS: BP 164/83; PULSE 59; RESP 18; TEMP 97.7; O2SAT 94
[2016-08-09 04:00] VITALS: BP 173/93; PULSE 59; RESP 20; TEMP 97.7; O2SAT 93
[2016-08-09] MEDS: ACETAMINOPHEN/HYDROcodone 325 MG/10 MG TAB PO PRN (06:34)
[2016-08-09] MEDS: INSULIN ASPART SUPPLEMENTAL SCALE SQ SCH (06:36)
[2016-08-09 07:52] LABS: AUTOMATED NEUTROPHIL # 6.9 TH/MM3 (1.8-7.7); BASOPHIL % 0.1 % (0.0-2.0); HEMO FLAGS DIFF FINAL; LYMPH % 12.3 % (9.0-44.0); MEAN CELL VOLUME 90.8 FL (80.0-100.0); MEAN CORPUSCULAR HGB CONC 35.3 % (32.0-36.0); MONO % 5.1 % (0.0-8.0); NEUT % 82.5 % (16.0-70.0); PLATELET COUNT 246 TH/MM3 (150-450); RED BLOOD COUNT 4.19 MIL/MM3 (4.50-5.90); RED CELL DISTRIBUTION WIDTH 12.9 % (11.6-17.2); WHITE BLOOD COUNT 8.3 TH/MM3 (4.0-11.0)
[2016-08-09 08:00] VITALS: BP 173/90; PULSE 62; RESP 20; TEMP 97.5; O2SAT 94
[2016-08-09] MEDS ORDERED: INSULIN DETEMIR 100 UNITS/ML VIAL SQ SCH (08:00)
[2016-08-09 08:05] VITALS: PULSE 57
[2016-08-09 08:16] LABS: ALKALINE PHOSPHATASE 65 U/L (45-117); ALT (GPT) 10 U/L (12-78); ANION GAP 9 MEQ/L (5-15); AST (GOT) 4 U/L (15-37); BICARBONATE 25.5 MEQ/L (21.0-32.0); BLOOD UREA NITROGEN 11 MG/DL (7-18); CHLORIDE 95 MEQ/L (98-107); GLOMERULAR FILTRATION RATE 122 ML/MIN (>89); MAGNESIUM 1.1 MG/DL (1.5-2.5); POTASSIUM 4.3 MEQ/L (3.5-5.1); SODIUM (NA) 129 MEQ/L (136-145); TOTAL BILIRUBIN ADULT 0.4 MG/DL (0.2-1.0)
[2016-08-09] MEDS ORDERED: PRED10 PO (08:32)
[2016-08-09] MEDS ORDERED: LEVA750T PO (08:32)
[2016-08-09] MEDS ORDERED: NICO21DI2 TD (08:32)
[2016-08-09] MEDS ORDERED: VENTAER INH (08:32)
[2016-08-09] MEDS ORDERED: NICO4GUM29 CHEW (08:32)
--- NOTE | 2016-08-09 08:33 | HHI.DCPOC ---
Discharge Care Plan Diagnosis: (1) COPD exacerbation (2) Hyperglycemia due to type 2 diabetes mellitus Goals to Promote Your Health * To prevent worsening of your condition and complications * To maintain your health at the optimal level Directions to Meet Your Goals Take your medications as prescribed Follow your dietary instruction Follow activity as directed Keep your appointments as scheduled Take your immunizations and boosters as scheduled If your symptoms worsen call your PCP, if no PCP go to Urgent Care Center or Emergency Room Smoking is Dangerous to Your Health. Avoid second hand smoke Call the 24-hour hour crisis hotline for domestic abuse at Johanna Horton MD R2 Aug 09, 2016 08:33
[2016-08-09] MEDS: RIVAROXABAN 20 MG TAB PO SCH (08:40)
[2016-08-09] MEDS: METOPROLOL TARTRATE 50 MG TAB PO SCH (08:40)
[2016-08-09] MEDS: ENALAPRIL MALEATE 10 MG TAB PO SCH (08:40)
[2016-08-09] MEDS: AZITHROMYCIN 250 MG TAB PO SCH (08:40)
[2016-08-09] MEDS: CELECOXIB 200 MG CAP PO SCH (08:40)
[2016-08-09] MEDS: PANTOPRAZOLE SOD 40 MG DELAYED RELEASE TAB PO SCH (08:40)
[2016-08-09] MEDS: predniSONE 20 MG TAB PO SCH (08:40)
[2016-08-09] MEDS: NICOTINE 21 MG/24 HR PATCH TD SCH (08:42)
[2016-08-09] MEDS: REMOVE OLD NICODERM (NICOTINE) PATCH TD SCH (08:42)
[2016-08-09] MEDS: cefTRIAXone INJ 1,000 MG in SODIUM CHLORIDE 0.9% INJ 100 ML IV SCH (09:01)
[2016-08-09 09:07] VITALS: O2SAT 93
[2016-08-09] MEDS ORDERED: ENAL5TAB98 PO (09:51)
[2016-08-09] MEDS ORDERED: ENALAPRIL MALEATE 5 MG TAB PO ONE (10:00)
--- NOTE | 2016-08-09 10:01 | HHI.FPPN ---
Subjective Remarks No acute events overnight. Vital signs unremarkable overnight. This morning BP has increased to 170 systolic. Patient is otherwise asymptomatic and feels very well. States that he feels ready to go. Has been up walking around without respiratory issues. Denies chest pain, SOB. Objective Vitals Vital Signs Date Time Temp Pulse Resp B/P Pulse Ox O2 Delivery O2 Flow Rate FiO2 08/09/16 08:00 97.5 62 20 173/90 94 08/09/16 04:00 97.7 59 20 173/93 93 08/09/16 01:12 97.7 59 18 164/83 94 08/08/16 22:51 93 21 08/08/16 21:51 97.5 66 20 149/85 95 08/08/16 20:00 60 08/08/16 16:00 97.9 56 18 130/80 96 08/08/16 12:00 98.0 58 18 133/70 91 I/O 08/08/16 08/08/16 08/08/16 08/09/16 08/09/16 08/09/16 07:00 15:00 23:00 07:00 15:00 23:00 Intake Total 3190 ml 100 ml Output Total 1200 ml Balance 1990 ml 100 ml Intake Oral 960 ml IV Total 2230 ml 100 ml Output Urine Total 1200 ml # Bowel Movements 0 Result Diagram: 08/09/1653 08/09/16 0653 Objective Remarks GEN: Well-developed, well-nourished patient. No acute distress. CV: Regular rate and rhythm without obvious murmurs LUNGS: Barrel chested. Good air movement bilaterally. Sparse expiratory wheezing. On room air EXT: No edema. No calf tenderness. NEURO/PSYCH: Awake, alert. Appropriate insight and judgment. Normal speech A/P Assessment and Plan 66 year old male with PMH of T2DM insulin dependent who was admitted for COPD exacerbation Discharge Planning Today wdw Dr. Waldron Problem List: (1) COPD (chronic obstructive pulmonary disease) Status: Acute Plan: No prior diagnosis of COPD. Patient does have a significant cigarette smoking history. History and physical suggestive of COPD exacerbation. -O2 via NC, wean as tolerated, goal O2 sats 88-92% -Walk test canceled as patient has been walking around without issues and denies any respiratory distress. Currently on room air. Medications: * IV steroids switched to PO due to hyperglycemia. Prednisone 20mg BID * Continue Azithromycin and Rocephin (azithromycin started 08/06 prior to admission; Rocephin started 08/07). Discharge with Levaquin for 5days. * Duonebs and albuterol prn (2) T2DM (type 2 diabetes mellitus) Status: Chronic Plan: Patient is compliant with medications but DM seems to be inadequately controlled HbA1c 8.9 Levemir 10 units qhs, AM insulin increased to 10units Medium-dose ISS HOLD home metformin Accuchecks ACHS (3) Hyponatremia Status: Acute Plan: Na 123 on admission. -Improving with fluids restrictions (4) Hypertension Status: Chronic Plan: Continue home medications. BP elevated this AM - Enalapril 10 mg po daily - Metoprolol 50 mg po daily Added Vasotec 5mg at night (5) Portal vein thrombosis Status: Chronic Plan: Continue home Xarelto (6) Nutrition, metabolism, and development symptoms Status: Acute Plan: Diet: Diabetic diet Fluids: None Electrolytes: Improving, see plan under hyponatremia DVT PPX: Home Xarelto dose, SCDs GI PPX: Protonix 40 mg po daily Addendum: Contacted since patient had are left the hospital. Told patient to throw away enalapril 5 mg and to start taking enalapril 20 mg daily. Patient 's endorsed understanding of changes in medication. New prescription transmitted to patient's preferred pharmacy. Johanna Horton MD R2 Aug 09, 2016 10:01
[2016-08-09] MEDS ORDERED: ENAL20TA PO (11:58)
--- NOTE | 2016-08-09 14:02 | HHI.DS ---
Discharge Summary Admission Date Aug 07, 2016 at 16:44 Discharge Date: Aug 09, 2016 Admitting Diagnosis Hyperglycemia/Hypoxia/Hyponatremia/COPD (1) COPD (chronic obstructive pulmonary disease) Plan: No prior diagnosis of COPD. Patient does have a significant cigarette smoking history. History and physical suggestive of COPD exacerbation. -O2 via NC, wean as tolerated, goal O2 sats 88-92% -Walk test canceled as patient has been walking around without issues and denies any respiratory distress. Currently on room air. Medications: * IV steroids switched to PO due to hyperglycemia. Prednisone 20mg BID * Continue Azithromycin and Rocephin (azithromycin started 08/06 prior to admission; Rocephin started 08/07). Discharge with Levaquin for 5days. * Duonebs and albuterol prn (2) T2DM (type 2 diabetes mellitus) Plan: Patient is compliant with medications but DM seems to be inadequately controlled HbA1c 8.9 Levemir 10 units qhs, AM insulin increased to 10units Medium-dose ISS HOLD home metformin Accuchecks ACHS (3) Hyponatremia Plan: Na 123 on admission. -Improving with fluids restrictions (4) Hypertension Plan: Continue home medications. BP elevated this AM - Enalapril 10 mg po daily - Metoprolol 50 mg po daily Added Vasotec 5mg at night (5) Portal vein thrombosis Plan: Continue home Xarelto (6) Nutrition, metabolism, and development symptoms Plan: Diet: Diabetic diet Fluids: None Electrolytes: Improving, see plan under hyponatremia DVT PPX: Home Xarelto dose, SCDs GI PPX: Protonix 40 mg po daily Addendum: Contacted since patient had are left the hospital. Told patient to throw away enalapril 5 mg and to start taking enalapril 20 mg daily. Patient 's endorsed understanding of changes in medication. New prescription transmitted to patient's preferred pharmacy. Brief History 66 year old male with PMH of T2DM diagnosed 2 years ago has been on insulin since diagnosis presents to ED with his fiance with complaints of generalized weakness and malaise over the past [address] Thompson in [place]. Patient states he was in [place] until the end of June. PCP started a medication for cholesterol in mid june, however took this for only 7 days as his blood glucoses started to elevate and was advised to discontinue per PCP. Patient does check his blood sugars every morning and night. Blood glucoses over the past two weeks have mostly been in the range of 200 - 300s. Prior to starting his cholesterol medication his sugars were better controlled in the 120s-130s. His fisherlyn recently called his PCP and was prescribed azithromycin which was started yesterday. Aure bought an OTC urine test strip which was remarkable for elevated ketones and was advised by PCP to go to the ED. States he possibly had a fever sometime during the previous week however he denies no other fevers since then. Denies vomiting. Denies chest pain. Patient states he used to walk 2 miles per day. States he has been feeling short of breath for the past 2 weeks. Can only walk to the mailbox and back before feeling SOB. Reports a dry cough also over the past 2 weeks. Decreased PO and fluid intake due to decreased appetite x 2 weeks. CBC/BMP: 08/09/16 0653 08/09/16 0653 Significant Findings Laboratory Tests Test 08/07/16 08/07/16 08/07/16 08/08/16 12:34 14:52 21:05 01:16 Neutrophils (%) (Auto) 76.5 % (16.0-70.0) Activated Partial 33.4 SEC Thromboplast Time (24.3-30.1) Sodium Level 123 MEQ/L 125 MEQ/L (136-145) (136-145) Chloride Level 89 MEQ/L 89 MEQ/L (98-107) (98-107) Estimat Glomerular Filtration 72 ML/MIN (>89) 85 ML/MIN (>89) Rate Random Glucose 378 MG/DL 535 MG/DL (74-106) (74-106) Magnesium Level 0.8 MG/DL (1.5-2.5) Aspartate Amino Transf 11 U/L (15-37) (AST/SGOT) Troponin I LESS THAN 0.02 NG/ML (0.02-0.05) Albumin 3.2 GM/DL (3.4-5.0) B-Hydroxybutyrate 0.98 MMOL/L 2.82 MMOL/L (0.00-0.39) (0.00-0.39) Urine Glucose (UA) 1000 mg/dL (NEG) Urine Ketones 40 mg/dL (NEG) Calcium Level 8.1 MG/DL (8.5-10.1) Arterial Blood pH 7.43 (7.380-7.420) Arterial Blood Partial 35 mmHg (38-42) Pressure CO2 Test 08/08/16 08/08/16 08/08/16 08/08/16 01:28 06:30 16:44 21:03 Sodium Level 129 MEQ/L 129 MEQ/L 131 MEQ/L 128 MEQ/L (136-145) (136-145) (136-145) (136-145) Chloride Level 94 MEQ/L 96 MEQ/L 96 MEQ/L (98-107) (98-107) (98-107) Estimat Glomerular Filtration 84 ML/MIN (>89) 85 ML/MIN (>89) Rate Random Glucose 440 MG/DL 364 MG/DL 281 MG/DL 363 MG/DL (74-106) (74-106) (74-106) (74-106) Calcium Level 8.3 MG/DL 8.2 MG/DL 8.3 MG/DL 8.3 MG/DL (8.5-10.1) (8.5-10.1) (8.5-10.1) (8.5-10.1) Red Blood Count 4.34 MIL/MM3 (4.50-5.90) Neutrophils (%) (Auto) 84.3 % (16.0-70.0) Lymphocytes # (Auto) 0.7 TH/MM3 (1.0-4.8) Hemoglobin A1c 8.9 % (4.3-6.0) B-Hydroxybutyrate 1.01 MMOL/L (0.00-0.39) Test 08/09/16 06:53 Red Blood Count 4.19 MIL/MM3 (4.50-5.90) Hematocrit 38.0 % (39.0-51.0) Neutrophils (%) (Auto) 82.5 % (16.0-70.0) Sodium Level 129 MEQ/L (136-145) Chloride Level 95 MEQ/L (98-107) Random Glucose 284 MG/DL (74-106) Calcium Level 8.1 MG/DL (8.5-10.1) Magnesium Level 1.1 MG/DL (1.5-2.5) Aspartate Amino Transf 4 U/L (15-37) (AST/SGOT) Alanine Aminotransferase 10 U/L (12-78) (ALT/SGPT) Total Protein 6.1 GM/DL (6.4-8.2) Albumin 2.9 GM/DL (3.4-5.0) PE at Discharge GEN: Well-developed, well-nourished patient. No acute distress. CV: Regular rate and rhythm without obvious murmurs LUNGS: Barrel chested. Good air movement bilaterally. Sparse expiratory wheezing. On room air EXT: No edema. No calf tenderness. NEURO/PSYCH: Awake, alert. Appropriate insight and judgment. Normal speech Hospital Course Patient is a 66-year-old male who presented due to feelings of generalized weakness and malaise. Found to have a COPD exacerbation that was treated with Solu-Medrol IV but was then transitioned to PO due to severe worsening of hyperglycemia as patient is a diabetic. Patient was also treated with azithromycin, Rocephin, breathing treatments. Patient had a good response to this treatment plan and was able to wean off of supplemental oxygen. Prior to discharge he was walking around without any respiratory distress. Patient was discharged in stable condition with Levaquin and a steroid taper. Pt Condition on Discharge: Stable Discharge Disposition: Discharge Home Discharge Instructions DIET: Follow Instructions for: Diabetic Diet Activities you can perform: Regular-No Restrictions Follow up Referrals: PCP Follow-up - 1 Week New Medications: Albuterol 18 GM Inh (Ventolin Hfa 18 GM Inh) 90 Mcg/Act Aer 2 PUFF INH Q4-6H PRN SHORTNESS OF BREATH #1 Ref 0 INHALER Enalapril (Enalapril) 20 Mg Tab 20 MG PO DAILY #30 Ref 0 TAB Levofloxacin (Levaquin) 750 Mg Tab 750 MG PO DAILY Infection #5 Ref 0 TAB Nicotine Gum (Nicotine Gum) 4 Mg Gum 4 MG CHEW Q2H Smoking Cessation #1 Ref 0 BOX Prednisone (Prednisone) 10 Mg Tab 10 MG PO DIRECTED 2 Tabs (20mg) twice a day for 3 days. Then 1 Tab (10mg) twice a day for 3 days. Then 1 Tab (10mg) once a day for 3 days #21 Ref 0 TAB Nicotine Patch (Nicotine Patch) 21 Mg/24 Hr Patch 1 PATCH TD DAILY #30 PATCH Continued Medications: Baclofen (Baclofen) 10 Mg Tab 10 MG PO BID PRN MUSCLE SPASM Ref 0 TAB Celecoxib (Celecoxib) 200 Mg Cap 200 MG PO BID Pain Management Ref 0 CAP Hydrocodone-Acetaminophen (Hydrocodone-Acetaminophen) 10-325 mg Tab 1 TAB PO Q6H PRN PAIN #30 Ref 0 TAB Insulin Glargine Inj (Lantus Inj) 1,000 Unit/10 Ml Vial 20 UNITS SQ HS Blood Sugar Management Ref 0 VIAL Metformin (Metformin) 1,000 Mg Tab 1000 MG PO BIDPC With meals Blood Sugar Management #60 Ref 0 TAB Metoprolol Tartrate (Metoprolol Tartrate) 50 Mg Tab 50 MG PO DAILY #30 Ref 0 TAB Pantoprazole (Pantoprazole) 40 Mg Tab 40 MG PO DAILY Reflux #30 Ref 0 TAB Rivaroxaban (Xarelto) 20 Mg Tab 20 MG PO DAILY Blood Clot Prevention Ref 0 TAB Tamsulosin (Tamsulosin) 0.4 Mg Cap 0.4 MG PO HS Manage Prostate Problems #30 Ref 0 CAP Zolpidem (Zolpidem) 5 Mg Tab 5 MG PO HS PRN INSOMNIA Ref 0 TAB Discontinued Medications: Azithromycin (Azithromycin) 250 Mg Tab 250 MG PO DIRECTED Take 2 tabs (500 mg) on day 1 then 1 tab daily x 4 days. Infection #6 Ref 0 TAB Johanna Horton MD R2 Aug 09, 2016 14:02
== END 2016-08-09 11:45 | disposition home or self-care (01) | DRG 191 ==
LOC: NEPC 13:50 → NEDA 16:44 → N04A 18:39
PROVIDERS: ADMIT Family Medicine; ATTEND Family Medicine
PROC: 3E0F7GC Introduction of Other Therapeutic Substance into Respiratory Tract, Via Natural or Artificial Opening (ICD-10-PCS; principal; 2016-08-07)
DX: J44.1 Chronic obstructive pulmonary disease with (acute) exacerbation (principal); E87.1 Hypo-osmolality and hyponatremia; E11.65 Type 2 diabetes mellitus with hyperglycemia; I10 Essential (primary) hypertension; Z79.4 Long term (current) use of insulin; R09.02 Hypoxemia; Z88.0 Allergy status to penicillin; F17.210 Nicotine dependence, cigarettes, uncomplicated; Z96.642 Presence of left artificial hip joint; M19.90 Unspecified osteoarthritis, unspecified site; N40.0 Benign prostatic hyperplasia without lower urinary tract symptoms; Z79.02 Long term (current) use of antithrombotics/antiplatelets; Z80.0 Family history of malignant neoplasm of digestive organs; Z82.49 Family history of ischemic heart disease and other diseases of the circulatory system; Z86.718 Personal history of other venous thrombosis and embolism
CPT/HCPCS: 36600; 71010; 80048; 80053; 81001; 82010; 82805; 82948; 83036; 83690; 83735; 83880; 84484; 85025; 85610; 85730; 93005; 94640; 94664; 96361; 96374; 96375; J0696; J1815; J2920; J2930; J3475; J3480; J7030; J7040; J7512